=== PATIENT | male | born 1965 | race African-American/Black ===

== ENCOUNTER 2019-04-19 21:57 | Emergency (ER) | payer OTHER ==
[~2019-04-19] VITALS: Ht 185.4 cm; Wt 136.0 kg
[2019-04-19] MEDS ORDERED: SODIUM CHLORIDE 0.9% 1,000 ML IV ONE (22:26)
[2019-04-19] MEDS ORDERED: ONDANSETRON HCL 4MG/2ML INJ IV STA (22:26)
[2019-04-19 22:46] LABS: BASOPHILS % 0.2 % (0.0-2.0); EOSINOPHILS % 1.2 % (0.0-5.0); HEMATOCRIT. 44.4 % (42.0-52.0); HEMOGLOBIN. 15.4 g/dL (14.0-18.0); LYMPHOCYTES % 24.2 % (20.0-50.0); MEAN CORPUSCULAR HEMOGLOBIN 28.8 pg (28.0-32.0); MEAN PLATELET VOLUME 8.2 fl (7.4-10.4); MONOCYTES % 4.7 % (2.0-8.0); NEUTROPHILS % 69.7 % (40.0-76.0); PLATELET 377 x1000/uL (130-400); RED BLOOD CELL COUNT 5.35 mill/uL (4.7-6.1); RED CELL DISTRIBUTION WIDTH 15.1 % (11.6-14.6)
[2019-04-19 22:51] LABS: CHLORIDE 103 mEq/L (98-107)
[2019-04-20] MEDS ORDERED: LEVETIRACETAM 500MG PREMIX 100 ML IV ONE (00:15)
[2019-04-20] MEDS ORDERED: LEVETIRACETAM 500MG PREMIX 100 ML IV SCH (00:15)
[2019-04-20 09:29] VITALS: BP 112/67
== END 2019-04-20 09:28 | disposition short-term general hospital (02) ==
LOC: ER 21:57
DX: R55 Syncope and collapse (principal); E11.9 Type 2 diabetes mellitus without complications
CPT/HCPCS: 36415; 70450; 71045; 80053; 83880; 84484; 85025; 93005; 96361; 96365; 96375; 99284; J1953; J2405; J7030